=== PATIENT | female | born 1985 | race American Indian/Alaskan Native ===

== ENCOUNTER 2019-04-07 16:56 | Emergency (ER) | payer SELFPAY ==
[2019-04-07 17:02] VITALS: BP 143/80
--- NOTE | 2019-04-07 17:05 | Event Note ---
ED Screening Note Date of service: 04/07/19 Time: 17:01 ED Screening Note: 33 y o female presents to ED cc of coughing and chest congestion x productive cough pt also cc of n/v This initial assessment/diagnostic orders/clinical plan/treatment(s) is/are subject to change based on patients health status, clinical progression and re- assessment by fellow clinical providers in the ED. Further treatment and workup at subsequent clinical providers discretion. Patient/guardian urged not to elope from the ED as their condition may be serious if not clinically assessed and managed. Initial orders include: cxr
[2019-04-07 18:30] LABS: HCG Qualitative,Urine Positive (Negative)
--- NOTE | 2019-04-07 22:42 | Emergency Department Report ---
<MELODY VICKERS - Last Filed: 04/07/19 22:35> - General Chief Complaint: Upper Respiratory Infection Stated Complaint: CHEST PAIN/CONGESTION/NAUSEA Time Seen by Provider: 04/07/19 22:02 Source: patient Mode of arrival: Ambulatory Limitations: No Limitations - History of Present Illness Initial Comments: pt is a 33 y /o female presents to ED cc of coughing and chest congestion x3 days , cough is productive productive yellow green. however pt is x 6 weeks confirmed by obgyn, pt does endorse am n/v, morning sickness but no other symptoms no bleeding , no discharge, no abd pain. pt states this is typical bronchitis flare. There is no concern. MD Complaint: cough, sore throat, rhinorrhea, nasal congestion Onset/Timin -: days(s) Severity: moderate Severity scale (0 -10): 3 Consistency: intermittent Improves With: nothing Worsens With: activity, other (environmental exposure ) Context: sick contacts Associated Symptoms: rhinorrhea, nasal congestion, cough, other (wheezing ) Treatments Prior to Arrival: none - Related Data Home Medications Medication Instructions Recorded Confirmed Last Taken ALBUTEROL Inhaler (OR & NICU) 07/07/15 Unknown [ProAir HFA Inhaler] Previous Rx's Medication Instructions Recorded Last Taken Type Docusate Sodium [Colace] 100 mg PO BID PRN #20 capsule 07/08/15 Unknown Rx Magnesium Citrate [Citrate of 300 ml PO NOW #1 bottle 07/08/15 Unknown Rx Magnesia] Lansoprazole [Prevacid] 15 mg PO BID #30 cap 12/25/17 Unknown Rx ALBUTEROL Inhaler (OR & NICU) 2 puff IH QID PRN #8.5 gram 04/07/19 Unknown Rx [ProAir HFA Inhaler] Acetaminophen [Acetaminophen TAB] 650 mg PO Q6HR PRN #30 tablet 04/07/19 Unknown Rx Azithromycin [Zithromax Z-KELBY] 250 mg PO DAILY #6 tab 04/07/19 Unknown Rx predniSONE [Deltasone] 40 mg PO QDAY 5 Days #10 tab 04/07/19 Unknown Rx Allergies Allergy/AdvReac Type Severity Reaction Status Date / Time No Known Allergies Allergy Verified 04/07/19 16:56 ED Review of Systems Constitutional: denies: chills, fever Eyes: denies: eye pain, eye discharge, vision change ENT: congestion Respiratory: cough, wheezing Cardiovascular: denies: chest pain, palpitations Endocrine: no symptoms reported Gastrointestinal: nausea, vomiting (am morning sickness intermittently ). denies: abdominal pain, diarrhea Genitourinary: denies: urgency, dysuria, frequency, hematuria, discharge Musculoskeletal: denies: back pain, joint swelling, arthralgia Skin: denies: rash, lesions Neurological: denies: headache, weakness, paresthesias Psychiatric: denies: anxiety, depression Hematological/Lymphatic: denies: easy bleeding, easy bruising ED Past Medical Hx - Past Medical History Hx Asthma: Yes Additional medical history: PCOS - Surgical History Past Surgical History?: No - Social History Smoking Status: Never Smoker Substance Use Type: None - Medications Home Medications: Home Medications Medication Instructions Recorded Confirmed Last Taken Type ALBUTEROL Inhaler (OR & NICU) 07/07/15 Unknown History [ProAir HFA Inhaler] Docusate Sodium [Colace] 100 mg PO BID PRN #20 capsule 07/08/15 Unknown Rx Magnesium Citrate [Citrate of 300 ml PO NOW #1 bottle 07/08/15 Unknown Rx Magnesia] Lansoprazole [Prevacid] 15 mg PO BID #30 cap 12/25/17 Unknown Rx ALBUTEROL Inhaler (OR & NICU) 2 puff IH QID PRN #8.5 gram 04/07/19 Unknown Rx [ProAir HFA Inhaler] Acetaminophen [Acetaminophen TAB] 650 mg PO Q6HR PRN #30 tablet 04/07/19 Unknown Rx Azithromycin [Zithromax Z-KELBY] 250 mg PO DAILY #6 tab 04/07/19 Unknown Rx predniSONE [Deltasone] 40 mg PO QDAY 5 Days #10 tab 04/07/19 Unknown Rx ED Physical Exam - General Limitations: No Limitations General appearance: alert, in no apparent distress - Head Head exam: Present: atraumatic, normocephalic - Eye Eye exam: Present: normal appearance, PERRL, EOMI Pupils: Present: normal accommodation - ENT ENT exam: Present: mucous membranes moist, TM's normal bilaterally, normal external ear exam - Expanded ENT Exam Expanded Ear exam: Present: normal external inspection Throat exam: Positive: normal inspection, other (uvual midline no exudate no lesion no stridor ). Negative: tonsillar erythema, tonsillomegaly, tonsillar exudate, R peritonsillar mass, L peritonsillar mass - Neck Neck exam: Present: normal inspection, full ROM. Absent: tenderness, meningismus, lymphadenopathy, thyromegaly - Respiratory Respiratory exam: Present: normal lung sounds bilaterally, wheezes (mild exp wheezes ). Absent: respiratory distress, rales, rhonchi, stridor, chest wall tenderness - Cardiovascular Cardiovascular Exam: Present: regular rate, normal rhythm, normal heart sounds. Absent: systolic murmur, diastolic murmur, rubs, gallop - GI/Abdominal GI/Abdominal exam: Present: soft, normal bowel sounds. Absent: distended, tenderness, guarding, rebound, rigid, bruit, hernia - Rectal Rectal exam: Present: deferred - Extremities Exam Extremities exam: Present: normal inspection, full ROM, normal capillary refill. Absent: tenderness - Back Exam Back exam: Present: normal inspection, full ROM. Absent: tenderness, CVA tenderness (R), CVA tenderness (L), muscle spasm, vertebral tenderness, rash noted - Neurological Exam Neurological exam: Present: alert, oriented X3, CN II-XII intact, normal gait - Psychiatric Psychiatric exam: Present: normal affect, normal mood - Skin Skin exam: Present: warm, dry, intact, normal color. Absent: rash ED Medical Decision Making - Medical Decision Making exam is consistent with bronchitis,pt advises that symptom level does not warrant. neb tx in ed. pt is a/o x 3, ambulatory with steady gait nad no increa se in sob or wheezing. pt tx'd for bronchitis, will follow up with pcp and obgyn as scheduled. ED Disposition Clinical Impression: Bronchitis Disposition: TO HOME OR SELFCARE Is pt being admited?: No Does the pt Need Aspirin: No Condition: Stable Instructions: (ED), Acute Bronchitis (ED), Chronic Bronchitis (ED) Additional Instructions: your test is positive, you have no related symptoms however please follow up with OBGYN Dr. Berger in 2-3 days , take all medications as prescribed return to ed if symptoms worsen Prescriptions: Acetaminophen [Acetaminophen TAB] 650 mg PO Q6HR PRN #30 tablet PRN Reason: Pain predniSONE [Deltasone] 40 mg PO QDAY 5 Days #10 tab ALBUTEROL Inhaler (OR & NICU) [ProAir HFA Inhaler] 2 puff IH QID PRN #8.5 gram PRN Reason: Shortness Of Breath Azithromycin [Zithromax Z-KELBY] 250 mg PO DAILY #6 tab Referrals: DODIE SANTOS MD [Staff Physician] - 3-5 Days SAUL BERGER MD [Referring] - 3-5 Days Forms: Work/School Release Form(ED) <LAILA MARTINEZ - Last Filed: 04/08/19 02:02> ED Review of Systems ROS: Stated complaint: CHEST PAIN/CONGESTION/NAUSEA Other details as noted in HPI ED Course Vital Signs 04/07/19 04/07/19 17:00 22:45 Temperature 97.9 F 97.9 F Pulse Rate 92 H 92 H Respiratory 18 18 Rate Blood Pressure 143/80 O2 Sat by Pulse 98 98 Oximetry ED Medical Decision Making - Medical Decision Making Attestation: Available for consultation Critical care attestation.: If time is entered above; I have spent that time in minutes in the direct care of this critically ill patient, excluding procedure time. ED Disposition Is pt being admited?: No
== END 2019-04-07 22:45 | disposition home or self-care (01) ==
LOC: ED 16:56
DX: J45.909 Unspecified asthma, uncomplicated (principal); Z79.899 Other long term (current) drug therapy
CPT/HCPCS: 81025; 99283